=== PATIENT | male | born 1980 | race Caucasian/White ===

== ENCOUNTER 2017-01-27 17:03 | Emergency (ER) | payer OTHER | END 2017-01-27 19:50 | disposition home or self-care (01) | LOC: FER 17:03 | DX: S61.212A Laceration without foreign body of right middle finger without damage to nail, initial encounter (principal); F17.210 Nicotine dependence, cigarettes, uncomplicated; Z23 Encounter for immunization; W26.0XXA Contact with knife, initial encounter; Y92.009 Unspecified place in unspecified non-institutional (private) residence as the place of occurrence of the external cause | CPT/HCPCS: 90471; 90715 ==

== ENCOUNTER 2020-09-04 17:56 | Emergency (ER) | payer OTHER | END 2020-09-04 20:00 | disposition other institution (70) | LOC: FER 17:56 | DX: S51.822A Laceration with foreign body of left forearm, initial encounter (principal); F17.200 Nicotine dependence, unspecified, uncomplicated; Z20.822 Contact with and (suspected) exposure to COVID-19; Z23 Encounter for immunization; W29.8XXA Contact with other powered hand tools and household machinery, initial encounter; Y92.009 Unspecified place in unspecified non-institutional (private) residence as the place of occurrence of the external cause; S56.222A Laceration of other flexor muscle, fascia and tendon at forearm level, left arm, initial encounter | CPT/HCPCS: 73090; 90471; 90715; J2270; J2405; J7030; U0002 ==

== ENCOUNTER 2021-03-28 14:59 | Emergency (ER) | payer SELFPAY ==
[2021-03-28 15:37] LABS: EOSINOPHIL 2.7 % (0-5); HCT 44.9 % (42.0-52.0); HGB 15.4 g/dl (13.2-18.0); LYMPHOCYTE 22.1 % (15-48); MCH 31.4 pg (25.0-31.0); MCHC 34.3 g/dL (32.0-36.0); MCV 91.4 fL (78.0-100.0); MONOCYTE 8.7 % (0-12); MPV 9.8 fL (6.0-9.5); NEUTROPHIL 64.8 % (41-80); NRBC 0; PLT 230 K/uL (150-400); RBC 4.91 M/uL (4.70-6.00); RDW 12.4 % (11.5-14.0); WBC 6.8 K/uL (4.0-10.5)
[2021-03-28 16:13] LABS: ALBUMIN 3.6 g/dL (3.4-5.0); ALKALINE PHOSHATASE 98 U/L (46-116); ALT 68 U/L (16-63); AST 38 U/L (15-37); BILIRUBIN - TOTAL 0.1 mg/dL (0.2-1.0); BUN 15 mg/dL (7-18); BUN/CREAT RATIO (CALC) 15.5 RATIO; CHLORIDE 103 mmol/L (98-107); CO2 (BICARBONATE) 30 mmol/L (21-32); CREATININE 0.97 mg/dL (0.67-1.17); GLOBULIN (CALCULATION) 3.7 g/dL; GLUCOSE 107 mg/dL (74-106); POTASSIUM 4.1 mmol/L (3.5-5.1); TOTAL PROTEIN 7.3 g/dL (6.4-8.2)
[2021-03-28 16:14] LABS: ACETAMINOPHEN (TYLENOL) < 2.0 ug/mL (10.0-30.0)
== END 2021-03-28 21:18 | disposition home or self-care (01) ==
LOC: FER 14:59
PROVIDERS: Emergency Medicine
DX: T71.164A Asphyxiation due to hanging, undetermined, initial encounter (principal); F17.210 Nicotine dependence, cigarettes, uncomplicated; Z20.822 Contact with and (suspected) exposure to COVID-19
CPT/HCPCS: 36415; 80053; 85025; 99284; G0480; U0002